=== PATIENT | female | born 1960 | race Two or more races ===

== ENCOUNTER → 2023-11-12 | Outpatient (CLI) | payer OTHER, MEDICAID | END | disposition home or self-care (01) | LOC: XYW 13:53 | PROVIDERS: ATTEND Student in an Organized Health Care Education/Training Program | DX: I08.0 Rheumatic disorders of both mitral and aortic valves (principal); Q24.0 Dextrocardia; R07.9 Chest pain, unspecified | CPT/HCPCS: 93306 ==